=== PATIENT | female | born 1965 | race American Indian/Alaskan Native ===

== ENCOUNTER 2019-02-24 21:36 | Emergency (ER) | payer SELFPAY ==
[2019-02-24 21:49] VITALS: BP 126/58
[2019-02-24] MEDS ORDERED: MORPHINE 4 MG/1 ML INJ IV ONE (22:47)
[2019-02-24] MEDS ORDERED: ONDANSETRON 4 MG/2 ML INJ IV ONE (22:47)
[2019-02-24] MEDS ORDERED: SODIUM CHLORIDE 0.9% 1000 ML 1,000 ML IV ONE (22:47)
[2019-02-24 23:04] LABS: Bacteria,Urine 2+ /HPF (Negative); Bilirubin,Urine NEG (Negative); Blood,Urine NEG (Negative); Color,Urine Amber (Yellow); Mucus,Urine FEW /HPF
[2019-02-24] MEDS ORDERED: IBUPROFEN 800 MG TAB ONE (23:07)
[2019-02-24] MEDS ORDERED: IBUPROFEN 800 MG TAB PO ONE (23:09)
[2019-02-24 23:38] LABS: Eosinophils # (Auto) 0.2 K/mm3 (0.0-0.4); Eosinophils % (Auto) 2.4 % (0.0-4.3); Hematocrit 40.8 % (30.3-42.9); Hemoglobin 13.7 gm/dl (10.1-14.3); Lymphocytes # (Auto) 3.2 K/mm3 (1.2-5.4); Lymphocytes % (Auto) 49.6 % (13.4-35.0); Mean Corpuscular HGB Conc 34 % (30-34); Mean Corpuscular Volume 93 fl (79-97); Monocytes # (Auto) 0.3 K/mm3 (0.0-0.8); Monocytes % (Auto) 4.2 % (0.0-7.3); Platelet Count 327 K/mm3 (140-440); Red Blood Count 4.37 M/mm3 (3.65-5.03); Red Cell Distribution Width 13.8 % (13.2-15.2)
[2019-02-24 23:40] LABS: BUN/Creatinine Ratio 13; Blood Urea Nitrogen 12 mg/dL (7-17); Calcium 10.3 mg/dL (8.4-10.2)
[2019-02-24 23:41] LABS: Alanine Aminotransferase 83 units/L (7-56); Albumin 4.4 g/dL (3.9-5); Hemolysis Index 10
--- NOTE | 2019-02-25 01:03 | Cat Scan Report ---
CT ABDOMEN AND PELVIS WITH CONTRAST INDICATION / CLINICAL INFORMATION: RLQ PAIN. Patient complains of R.L.Q. abdominal pain x 2 weeks. No previous abdominal surgeries. TECHNIQUE: Axial CT images were obtained through the abdomen and pelvis after 100 mL Omnipaque [address] scans at this location are performed using CT dose reduction for ALARA by means of automated exposure control. COMPARISON: None available. FINDINGS: LOWER CHEST: No significant abnormality. LIVER: Liver is diffusely hypodense characteristic of fatty infiltration. GALLBLADDER: Contracted. No acute abnormality. BILE DUCTS: No significant abnormality. PANCREAS: Small calcification in the uncinate process of the pancreas doubtful clinical significance. SPLEEN: No significant abnormality. ADRENALS: No significant abnormality. RIGHT KIDNEY and URETER: No significant abnormality. LEFT KIDNEY and URETER: No significant abnormality. STOMACH and SMALL BOWEL: Stomach is moderately distended with food material. No acute small bowel abn ormality. COLON: No significant abnormality. APPENDIX: No significant abnormality. PERITONEUM: No free fluid. No free air. No fluid collection. LYMPH NODES: No significant adenopathy. AORTA and ARTERIES: No significant abnormality. IVC and VEINS: No significant abnormality. URINARY BLADDER: No significant abnormality. REPRODUCTIVE ORGANS: No significant abnormality. ADDITIONAL FINDINGS: None. SKELETAL SYSTEM: No significant abnormality. IMPRESSION: 1. No inflammatory process or bowel obstruction. Normal appendix. 2. Hepatic steatosis. Signer Name: Eloy Reed MD Signed: 02/25/2019 12:58 AM Workstation Name: [id number]
--- NOTE | 2019-02-25 01:11 | Emergency Department Report ---
ED Abdominal Pain HPI - General Chief Complaint: Abdominal Pain Stated Complaint: LOWER ABDOMINAL PAIN Source: patient Mode of arrival: Ambulatory Limitations: No Limitations - History of Present Illness Initial Comments: Patient is a 53-year-old -[place] female with a history of hypertension who presents to the ED with complaint of acute onset persistent abdominal pain in the right lower quadrant area with nausea intermittently for the last 1 week, worse in the last 2 days. Patient denies vomiting, dysuria, urinary frequency and urgency, dizziness, fever, chills, cough, chest pain, shortness of breath, vaginal bleeding, vaginal discharge or low back pain. MD Complaint: abdominal pain, other (nausea) -: Gradual, week(s) (1) Location: RLQ, suprapubic Radiation: RLQ, suprapubic Migration to: no migration Severity: moderate Severity scale (0 -10): 4 Quality: cramping, aching, sharp Consistency: intermittent Improves With: nothing Worsens With: nothing Associated Symptoms: denies other symptoms, nausea. denies: vomiting, diarrhea, fever, chills, constipation, dysuria, hematemesis, hematochezia, melena, hematuria, anorexia, syncope, other - Related Data Previous Rx's Medication Instructions Recorded Last Taken Type Acetaminophen/Codeine [Tylenol 1 tab PO Q6H PRN 3 Days #10 tab 02/25/19 Unknown Rx /Codeine # 3 tab] Ketorolac [Toradol] 10 mg PO Q8H PRN #20 tablet 02/25/19 Unknown Rx Ondansetron [Zofran Odt] 4 mg PO Q6HR PRN #15 tab.rapdis 02/25/19 Unknown Rx Allergies Allergy/AdvReac Type Severity Reaction Status Date / Time No Known Allergies Allergy Verified 02/24/19 23:08 ED Review of Systems ROS: Stated complaint: LOWER ABDOMINAL PAIN Other details as noted in HPI Constitutional: denies: chills, fever Eyes: denies: eye pain, eye discharge, vision change ENT: denies: ear pain, throat pain Respiratory: denies: cough, shortness of breath, wheezing Cardiovascular: denies: chest pain, palpitations Endocrine: no symptoms reported Gastrointestinal: abdominal pain, nausea. denies: vomiting, diarrhea, hematemesis Genitourinary: denies: urgency, dysuria, discharge Musculoskeletal: denies: back pain, joint swelling, arthralgia Skin: denies: rash, lesions Neurological: denies: headache, weakness, paresthesias Psychiatric: denies: anxiety, depression Hematological/Lymphatic: denies: easy bleeding, easy bruising ED Past Medical Hx - Past Medical History Previous Medical History?: No - Surgical History Past Surgical History?: No - Social History Smoking Status: Unknown if ever smoked Substance Use Type: None - Medications Home Medications: Home Medications Medication Instructions Recorded Confirmed Last Taken Type Acetaminophen/Codeine [Tylenol 1 tab PO Q6H PRN 3 Days #10 tab 02/25/19 Unknown Rx /Codeine # 3 tab] Ketorolac [Toradol] 10 mg PO Q8H PRN #20 tablet 02/25/19 Unknown Rx Ondansetron [Zofran Odt] 4 mg PO Q6HR PRN #15 tab.rapdis 02/25/19 Unknown Rx ED Physical Exam - General Limitations: No Limitations General appearance: alert, in no apparent distress - Head Head exam: Present: atraumatic, normocephalic, normal inspection - Eye Eye exam: Present: normal appearance, PERRL, EOMI. Absent: periorbital swelling, periorbital tenderness Pupils: Present: normal accommodation - ENT ENT exam: Present: normal exam, normal orophraynx, mucous membranes moist, TM's normal bilaterally, normal external ear exam - Neck Neck exam: Present: normal inspection, full ROM - Respiratory Respiratory exam: Present: normal lung sounds bilaterally. Absent: respiratory distress, wheezes, rales, chest wall tenderness, decreased breath sounds, prolonged expiratory - Cardiovascular Cardiovascular Exam: Present: regular rate, normal rhythm, normal heart sounds. Absent: systolic murmur, diastolic murmur, rubs, gallop - GI/Abdominal GI/Abdominal exam: Present: soft, tenderness (palpable moderate right lower quadrant tenderness, no guarding or rebound), normal bowel sounds. Absent: guarding, rebound, hyperactive bowel sounds, hypoactive bowel sounds - Extremities Exam Extremities exam: Present: normal inspection, full ROM, normal capillary refill - Back Exam Back exam: Present: normal inspection, full ROM. Absent: tenderness, CVA tenderness (R), CVA tenderness (L), muscle spasm, paraspinal tenderness - Neurological Exam Neurological exam: Present: alert, oriented X3, CN II-XII intact, normal gait, reflexes normal - Psychiatric Psychiatric exam: Present: normal affect, normal mood - Skin Skin exam: Present: warm, dry, intact, normal color. Absent: rash ED Course Vital Signs 02/24/19 21:48 Temperature 98.4 F Pulse Rate 69 Respiratory 18 Rate Blood Pressure 126/58 O2 Sat by Pulse 98 Oximetry - Reevaluation(s) Reevaluation #1: 02/25/19 01:18 This is a 53-year-old female who presented to the ED with right lower quadrant abdominal pain with nausea for one week. In the ED, patient is alert and oriented 3 and is not in distress. Patient was treated for pain in the ED. Lab test results were reviewed and showed normal urinalysis. Labs also showed acute hyperglycemia 1 38 mg/dL, elevated LFTs including AST of 43 and ALT of 83. There is on lab test results were nonactionable. Abdomen pelvis CT scan with contrast showed no acute abdomen or pelvis pathology including normal appendix. On reevaluation, patient's pain is well-controlled with medication, patient is discharged home on pain medications and antiemetics Zofran and patient was advised to follow-up with her primary care physician in 5-7 days for reevaluation or return to the ED immediately if symptoms get worse. 02/25/19 01:20 ED Medical Decision Making - Lab Data Result diagrams: 02/24/19 22:53 02/24/19 22:53 - Medical Decision Making This is a 53-year-old female who presented to the ED with right lower quadrant abdominal pain with nausea for one week. In the ED, patient is alert and oriented 3 and is not in distress. Patient was treated for pain in the ED. Lab test results were reviewed and showed normal urinalysis. Labs also showed acute hyperglycemia 1 38 mg/dL, elevated LFTs including AST of 43 and ALT of 83. There is on lab test results were nonactionable. Abdomen pelvis CT scan with contrast showed no acute abdomen or pelvis pathology including normal appendix. On reevaluation, patient's pain is well-controlled with medication, patient is discharged home on pain medications and antiemetics Zofran and patient was advised to follow-up with her primary care physician in 5-7 days for reevaluation or return to the ED immediately if symptoms get worse. - Differential Diagnosis acute appendicitis; abdominal pain, colitis, UTI Critical care attestation.: If time is entered above; I have spent that time in minutes in the direct care of this critically ill patient, excluding procedure time. ED Disposition Clinical Impression: Abdominal pain Qualifiers: Abdominal location: right lower quadrant Qualified Code(s): R10.31 - Right lower quadrant pain Disposition: TO HOME OR SELFCARE Is pt being admited?: No Does the pt Need Aspirin: No Condition: Stable Instructions: Abdominal Pain (ED) Additional Instructions: Take medication with food, drink plenty of fluids and follow-up with your primary care physician in 5-7 days for further reevaluation. Consider following up with [facility] physician for further evaluation. Return to the ED immediately if symptoms get worse. Prescriptions: Ketorolac [Toradol] 10 mg PO Q8H PRN #20 tablet PRN Reason: Pain Acetaminophen/Codeine [Tylenol /Codeine # 3 tab] 1 tab PO Q6H PRN 3 Days #10 tab PRN Reason: Pain , Severe (7-10) Ondansetron [Zofran Odt] 4 mg PO Q6HR PRN #15 tab.rapdis PRN Reason: Nausea Referrals: PRIMARY CARE, [Primary Care Provider] - 3-5 Days Time of Disposition: 01:13 Print Language: TURKMEN
== END 2019-02-25 01:30 | disposition home or self-care (01) ==
LOC: ED 21:36
DX: R10.31 Right lower quadrant pain (principal); R11.0 Nausea
CPT/HCPCS: 36415; 74177; 80053; 81001; 83690; 84703; 85025; 96361; 96374; 99284; J2405; J7030; Q9967; J2270